=== PATIENT | female | born 1985 | race Caucasian/White ===

== ENCOUNTER 2018-01-10 10:25 | Inpatient (IN) | payer OTHER ==
[2018-01-10] MEDS: NORMOSOL-R PH 7.4 1,000 ML IV SCH ×2 (10:30→15:46)
[2018-01-10] MEDS ORDERED: BRETHINE IVP PRN (11:13)
[2018-01-10] MEDS ORDERED: ZOFRAN IV PRN ×2 (11:13→19:35)
[2018-01-10] MEDS ORDERED: SUBLIMAZE IV PRN (11:13)
[2018-01-10] MEDS ORDERED: MINERAL OIL PO PRN (11:13)
[2018-01-10] MEDS ORDERED: ePHEDrine SULFATE IV PRN ×2 (11:13→13:34)
[2018-01-10] MEDS ORDERED: BRETHINE SUB-Q PRN (11:13)
--- NOTE | 2018-01-10 11:13 | History and Physical Report ---
History of Present Illness Date of examination: 01/10/18 Chief complaint: Painful contractions Absent tones History of present illness: 32-year-old at 30+3 weeks presents with decreased movement and painful contractions, she is a [facility] patient. Patient with care at [facility] presents with decreased movement and painful contractions this AM. No heart tone detected on sonogram. No vaginal bleeding course unremarkable per patient, sonogram obtained in October unremarkable, aneuploidy screening negative, glucose testing negative. He denies any medical problems, no drug use. On exam, she is 1 cm dilated, no vaginal bleeding Past History Past Medical History: no pertinent history Past Surgical History: no surgical history PRIMARY HEALTH CARE NURSE History: denies: chlamydia, gonorrhea, hepatitis B, hepatitis C, herpes, HIV , syphilis, trichomonas Social history: , full code. denies: smoking, alcohol abuse, prescription drug abuse, IV drug use - Obstetrical History Expected Date of Delivery: 03/18/18 Actual Gestation: 30 Week(s) 3 Day(s) : 6 Para: 3 Hx # Term Pregnancies: 2 Number of Pregnancies: 1 Medications and Allergies Allergies Allergy/AdvReac Type Severity Reaction Status Date / Time No Known Allergies Allergy Unverified 01/10/18 10:27 Review of Systems Constitutional: no fever, no chills, no sweats, no anorexia, no weakness, no malaise, no lethargy, no chronic headaches Eyes: no blurred vision, no diplopia, no discharge, no photophobia, no blind spots Cardiovascular: no chest pain, no orthopnea, no syncope, no lightheadedness, no shortness of breath, no dyspnea on exertion, no high blood pressure, no decreased exercise tolerance Respiratory: no cough, no shortness of breath, no dyspnea on exertion, no congestion, no sleep apnea Gastrointestinal: abdominal pain, no nausea, no vomiting, no diarrhea, no coffee ground emesis, no heartburn Genitourinary: contractions, no vaginal bleeding, no vaginal discharge, no leakage of fluid - Vital Signs Vital signs: Vital Signs Pulse Pulse Ox 74 100 01/10/18 10:34 01/10/18 10:34 Temp Pulse Resp BP Pulse Ox 85 134/96 100 01/10/18 11:06 01/10/18 11:06 01/10/18 10:34 - Physical Exam Cardiovascular: Regular rate, Normal S1, Normal S2 Lungs: Positive: Clear to auscultation, Normal air movement Abdomen: Positive: normal appearance, soft. Negative: distention, tenderness, guarding, rigidity Genitourinary (Female): Positive: normal external genitalia Vulva: both: normal Uterus: Positive: enlarged (EFW ~ 2900). Negative: tender Adnexa: both: normal Extremities: Positive: normal - Obstetrical FHR: other (No FhT) Cervical Dilatation: 1 Results Result Diagrams: 01/10/18 10:45 All other labs normal. Assessment and Plan A: 32-year-old at 30 weeks with IUFD -stable -No obvious sign of abruption -Fundal placenta and cephalic presentation P: -Admit -Routine labs -TORCHES and Anti-phospholipid ab -Expectant mgt -Anticipate - Patient Problems (1) 30 weeks gestation of Current Visit: Yes Status: Acute (2) IUFD (intrauterine ) Current Visit: Yes Status: Acute
[2018-01-10] MEDS ORDERED: SUBLIMAZE ONE ×2 (11:14→18:44)
[2018-01-10 11:19] LABS: Basophils % (Auto) 0.2 % (0.0-1.8); Eosinophils % (Auto) 0.3 % (0.0-4.3); Hematocrit 43.7 % (30.3-42.9); Hemoglobin 14.9 gm/dl (10.1-14.3); Lymphocytes # (Auto) 3.5 K/mm3 (1.2-5.4); Lymphocytes % (Auto) 20.2 % (13.4-35.0); Mean Corpuscular HGB Conc 34 % (30-34); Mean Corpuscular Hemoglobin 31 pg (28-32); Mean Corpuscular Volume 92 fl (79-97); Monocytes % (Auto) 5.8 % (0.0-7.3); Red Blood Count 4.76 M/mm3 (3.65-5.03); Red Cell Distribution Width 12.9 % (13.2-15.2)
[2018-01-10 11:49] LABS: Platelet Count 147 K/mm3 (140-440)
[2018-01-10] MEDS ORDERED: PITOCin/NS 20 UNIT/1000ML DRIP 20 UNITS/1,000 ML BAG IV SCH ×2 (12:00→20:00)
[2018-01-10] MEDS ORDERED: XYLOCAINE 2% INFILTRATI ONE (12:00)
[2018-01-10] MEDS ORDERED: PITOCin/NS 30 UNIT/500ML 30 UNITS/500 ML BAG IV SCH (12:00)
--- NOTE | 2018-01-10 12:15 | Ultrasound Report ---
LIMITED OB ULTRASOUND: Suspect demise. Gestation: Position: Single cephalic Amniotic Fluid: JOSE = cm Placenta: Anterior/right lateral Placental Grade: 0/1 Heart Rate: 0 BPM Inhomogeneous placenta with no demonstrable blood flow.
[2018-01-10 12:20] LABS: Amphetamine Screen,Urine PRESUMPTIVE NEGATIVE; Benzodiazepines Screen,Urine PRESUMPTIVE NEGATIVE; Cannabinoid Screen,Urine PRESUMPTIVE NEGATIVE; Cocaine Screen,Urine PRESUMPTIVE NEGATIVE; Methadone Screen,Urine PRESUMPTIVE NEGATIVE; Opiate Screen,Urine PRESUMPTIVE NEGATIVE
[2018-01-10 13:16] LABS: Hematocrit 37.5 % (30.3-42.9); Hemoglobin 12.5 gm/dl (10.1-14.3); Mean Corpuscular HGB Conc 33 % (30-34); Mean Corpuscular Hemoglobin 31 pg (28-32); Mean Corpuscular Volume 92 fl (79-97); Platelet Count 116 K/mm3 (140-440); Red Blood Count 4.09 M/mm3 (3.65-5.03); Red Cell Distribution Width 12.9 % (13.2-15.2)
[2018-01-10] MEDS ORDERED: NARCAN 2 MG/2 ML IV PRN (13:34)
[2018-01-10 13:37] LABS: INR 1.02 (0.87-1.13)
[2018-01-10] MEDS ORDERED: fentaNYL-BUPIV 2 MCG/ML-0.125% 200 MCG/100 ML BAG EPIDURAL SCH (14:00)
[2018-01-10] MEDS ORDERED: XYLOCAINE MPF 2% ONE (15:16)
[2018-01-10] MEDS ORDERED: TYLENOL PO PRN ×2 (15:49→19:35)
--- NOTE | 2018-01-10 16:04 | Progress Note ---
Assessment and Plan A: 32-year-old at 30+3 weeks with IUFD -stable -Fundal placenta and cephalic presentation issues: Fibrinogen ~ 187 Low plt at 116 P: -Repeat DIC panel -Consider cryo and FFP if still abnormal -Discussed options for delivery, low dose pit for now -Anticipate normal vaginal delivery - Patient Problems (1) 30 weeks gestation of Current Visit: Yes Status: Acute (2) IUFD (intrauterine ) Current Visit: Yes Status: Acute Subjective - Subjective Date of service: 01/10/18 Interval history: Patient seen and examined, she is status post epidural and her pain has reduced. Her cervix is 2-3 cm with old dark blood now noted from the cervix. Vitals are stable, abdomen is soft with frequent regular contractions. Lab results show normal PTT INR but low fibrinogen at ~ 187 Patient has no external signs of prolonged bleeding time from her external puncture sites from blood collection Patient reports: new complaints, vaginal bleeding (old dark blood), contractions , no movement normal Objective - Vital Signs Vital Signs: Vital Signs - 12hr 01/10/18 01/10/18 01/10/18 10:34 10:49 11:06 Temperature Pulse Rate 74 76 85 Respiratory Rate Blood Pressure 136/79 134/96 O2 Sat by Pulse 100 Oximetry 01/10/18 01/10/18 01/10/18 12:04 13:02 13:03 Temperature 98.2 F Pulse Rate 95 H 85 Respiratory 20 Rate Blood Pressure 118/60 116/60 O2 Sat by Pulse 100 Oximetry 01/10/18 01/10/18 01/10/18 13:07 13:12 13:17 Temperature Pulse Rate 85 87 77 Respiratory Rate Blood Pressure O2 Sat by Pulse 100 100 100 Oximetry 01/10/18 01/10/18 01/10/18 13:22 13:27 13:29 Temperature Pulse Rate 88 85 79 Respiratory Rate Blood Pressure O2 Sat by Pulse 100 100 92 Oximetry 01/10/18 01/10/18 01/10/18 13:32 13:37 13:41 Temperature Pulse Rate 102 H 80 76 Respiratory Rate Blood Pressure 113/70 O2 Sat by Pulse 100 100 Oximetry 01/10/18 01/10/18 01/10/18 13:42 13:47 13:52 Temperature Pulse Rate 79 73 77 Respiratory Rate Blood Pressure O2 Sat by Pulse 100 100 100 Oximetry 01/10/18 01/10/18 01/10/18 13:57 14:00 14:02 Temperature Pulse Rate 79 89 Respiratory 20 Rate Blood Pressure O2 Sat by Pulse 100 100 Oximetry 01/10/18 01/10/18 01/10/18 14:07 14:10 14:12 Temperature Pulse Rate 74 74 76 Respiratory Rate Blood Pressure 114/69 O2 Sat by Pulse 100 100 Oximetry 01/10/18 01/10/18 01/10/18 14:17 14:22 14:27 Temperature Pulse Rate 75 83 80 Respiratory Rate Blood Pressure O2 Sat by Pulse 100 100 100 Oximetry 01/10/18 01/10/18 01/10/18 14:32 14:37 14:41 Temperature Pulse Rate 82 71 71 Respiratory Rate Blood Pressure 131/72 O2 Sat by Pulse 100 100 Oximetry 01/10/18 01/10/18 01/10/18 14:42 14:47 14:52 Temperature Pulse Rate 71 69 86 Respiratory Rate Blood Pressure O2 Sat by Pulse 100 100 100 Oximetry 01/10/18 01/10/18 01/10/18 14:57 15:02 15:07 Temperature Pulse Rate 76 80 86 Respiratory Rate Blood Pressure O2 Sat by Pulse 100 100 100 Oximetry 01/10/18 01/10/18 01/10/18 15:12 15:17 15:22 Temperature Pulse Rate 83 85 91 H Respiratory Rate Blood Pressure O2 Sat by Pulse 100 99 99 Oximetry 01/10/18 01/10/18 01/10/18 15:27 15:32 15:35 Temperature Pulse Rate 86 76 76 Respiratory Rate Blood Pressure 129/66 O2 Sat by Pulse 100 100 Oximetry 01/10/18 01/10/18 01/10/18 15:37 15:42 15:47 Temperature Pulse Rate 79 73 78 Respiratory Rate Blood Pressure O2 Sat by Pulse 99 100 100 Oximetry 01/10/18 01/10/18 15:52 15:57 Temperature Pulse Rate 76 83 Respiratory Rate Blood Pressure O2 Sat by Pulse 100 99 Oximetry - Exam Uterus: Absent: tenderness Cervical Dilatation: 2.5 - Labs Labs: Abnormal Labs 01/10/18 01/10/18 01/10/18 10:45 12:11 12:11 WBC 17.3 H 16.2 H Hgb 14.9 H Hct 43.7 H RDW 12.9 L 12.9 L Plt Count 116 L [place] # 1.0 H Seg Neutrophils % 73.5 H Seg Neutrophils # 12.7 H Fibrinogen 187 L Laboratory Results - last 24 hr 01/10/18 01/10/18 01/10/18 10:45 10:45 11:54 WBC 17.3 H RBC 4.76 Hgb 14.9 H Hct 43.7 H MCV 92 MCH 31 MCHC 34 RDW 12.9 L Plt Count 147 Lymph % (Auto) 20.2 [place] % (Auto) 5.8 Eos % (Auto) 0.3 Baso % (Auto) 0.2 Lymph # 3.5 [place] # 1.0 H Eos # 0.0 Baso # 0.0 Seg Neutrophils % 73.5 H Seg Neutrophils # 12.7 H PT INR APTT Fibrinogen Urine Opiates Screen Presumptive negative Urine Methadone Screen Presumptive negative Ur Barbiturates Screen Presumptive negative Ur Phencyclidine Scrn Presumptive negative Ur Amphetamines Screen Presumptive negative U Benzodiazepines Scrn Presumptive negative Urine Cocaine Screen Presumptive negative U Marijuana (THC) Screen Presumptive negative Drugs of Abuse Note Disclamer Hep Bs Antigen Hepatitis C Antibody HIV 1&2 Antibody Rapid HIV P24 Antigen Blood Type A POSITIVE Antibody Screen Negative 01/10/18 01/10/18 01/10/18 12:11 12:11 12:11 WBC 16.2 H RBC 4.09 Hgb 12.5 Hct 37.5 D MCV 92 MCH 31 MCHC 33 RDW 12.9 L Plt Count 116 L Lymph % (Auto) [place] % (Auto) Eos % (Auto) Baso % (Auto) Lymph # [place] # Eos # Baso # Seg Neutrophils % Seg Neutrophils # PT 13.9 INR 1.02 APTT 32.0 Fibrinogen 187 L Urine Opiates Screen Urine Methadone Screen Ur Barbiturates Screen Ur Phencyclidine Scrn Ur Amphetamines Screen U Benzodiazepines Scrn Urine Cocaine Screen U Marijuana (THC) Screen Drugs of Abuse Note Hep Bs Antigen Hepatitis C Antibody Non-reactive HIV 1&2 Antibody Rapid HIV P24 Antigen Blood Type Antibody Screen 01/10/18 01/10/18 12:11 12:11 WBC RBC Hgb Hct MCV MCH MCHC RDW Plt Count Lymph % (Auto) [place] % (Auto) Eos % (Auto) Baso % (Auto) Lymph # [place] # Eos # Baso # Seg Neutrophils % Seg Neutrophils # PT INR APTT Fibrinogen Urine Opiates Screen Urine Methadone Screen Ur Barbiturates Screen Ur Phencyclidine Scrn Ur Amphetamines Screen U Benzodiazepines Scrn Urine Cocaine Screen U Marijuana (THC) Screen Drugs of Abuse Note Hep Bs Antigen Non-reactive Hepatitis C Antibody HIV 1&2 Antibody Rapid Non react HIV P24 Antigen Non react Blood Type Antibody Screen
[2018-01-10 16:30] LABS: Hemoglobin 11.5 gm/dl (10.1-14.3); Mean Corpuscular HGB Conc 33 % (30-34); Mean Corpuscular Hemoglobin 31 pg (28-32); Mean Corpuscular Volume 93 fl (79-97); Platelet Count 102 K/mm3 (140-440); Red Blood Count 3.77 M/mm3 (3.65-5.03); Red Cell Distribution Width 12.9 % (13.2-15.2)
--- NOTE | 2018-01-10 17:12 | Event Note ---
Date: 01/10/18 Just received result of DIC testing, fibrinogen level has improved. Her cervix has changed, she is now 3-4 cm. Platelets however are lower at ~ 100's and she has a low-grade temp. Plan is to start low-dose Pitocin and increase per protocol.
--- NOTE | 2018-01-10 18:24 | Progress Note ---
Assessment and Plan A: 32-year-old at 30+3 weeks with IUFD -stable -Fundal placenta and cephalic presentation P: -AROMed with clear fluid -Continue present care -Anticipate normal vaginal delivery - Patient Problems (1) 30 weeks gestation of Current Visit: Yes Status: Acute (2) IUFD (intrauterine ) Current Visit: Yes Status: Acute Subjective - Subjective Date of service: 01/10/18 Interval history: Patient now ~ 5 cm. Mild bloody show noted. Patient AROMed with clear fluid Patient reports: new complaints, vaginal bleeding (old dark blood), contractions , no movement normal Objective - Vital Signs Vital Signs: Vital Signs - 12hr 01/10/18 01/10/18 01/10/18 10:34 10:49 11:06 Temperature Pulse Rate 74 76 85 Respiratory Rate Blood Pressure 136/79 134/96 O2 Sat by Pulse 100 Oximetry 01/10/18 01/10/18 01/10/18 12:04 13:02 13:03 Temperature 98.2 F Pulse Rate 95 H 85 Respiratory 20 Rate Blood Pressure 118/60 116/60 O2 Sat by Pulse 100 Oximetry 01/10/18 01/10/18 01/10/18 13:07 13:12 13:17 Temperature Pulse Rate 85 87 77 Respiratory Rate Blood Pressure O2 Sat by Pulse 100 100 100 Oximetry 01/10/18 01/10/18 01/10/18 13:22 13:27 13:29 Temperature Pulse Rate 88 85 79 Respiratory Rate Blood Pressure O2 Sat by Pulse 100 100 92 Oximetry 01/10/18 01/10/18 01/10/18 13:32 13:37 13:41 Temperature Pulse Rate 102 H 80 76 Respiratory Rate Blood Pressure 113/70 O2 Sat by Pulse 100 100 Oximetry 01/10/18 01/10/18 01/10/18 13:42 13:47 13:52 Temperature Pulse Rate 79 73 77 Respiratory Rate Blood Pressure O2 Sat by Pulse 100 100 100 Oximetry 01/10/18 01/10/18 01/10/18 13:57 14:00 14:02 Temperature Pulse Rate 79 89 Respiratory 20 Rate Blood Pressure O2 Sat by Pulse 100 100 Oximetry 01/10/18 01/10/18 01/10/18 14:07 14:10 14:12 Temperature Pulse Rate 74 74 76 Respiratory Rate Blood Pressure 114/69 O2 Sat by Pulse 100 100 Oximetry 01/10/18 01/10/18 01/10/18 14:17 14:22 14:27 Temperature Pulse Rate 75 83 80 Respiratory Rate Blood Pressure O2 Sat by Pulse 100 100 100 Oximetry 01/10/18 01/10/18 01/10/18 14:32 14:37 14:41 Temperature Pulse Rate 82 71 71 Respiratory Rate Blood Pressure 131/72 O2 Sat by Pulse 100 100 Oximetry 01/10/18 01/10/18 01/10/18 14:42 14:47 14:52 Temperature Pulse Rate 71 69 86 Respiratory Rate Blood Pressure O2 Sat by Pulse 100 100 100 Oximetry 01/10/18 01/10/18 01/10/18 14:57 15:02 15:07 Temperature Pulse Rate 76 80 86 Respiratory Rate Blood Pressure O2 Sat by Pulse 100 100 100 Oximetry 01/10/18 01/10/18 01/10/18 15:12 15:17 15:22 Temperature Pulse Rate 83 85 91 H Respiratory Rate Blood Pressure O2 Sat by Pulse 100 99 99 Oximetry 01/10/18 01/10/18 01/10/18 15:27 15:32 15:35 Temperature Pulse Rate 86 76 76 Respiratory Rate Blood Pressure 129/66 O2 Sat by Pulse 100 100 Oximetry 01/10/18 01/10/18 01/10/18 15:37 15:42 15:47 Temperature Pulse Rate 79 73 78 Respiratory Rate Blood Pressure O2 Sat by Pulse 99 100 100 Oximetry 01/10/18 01/10/18 01/10/18 15:52 15:57 16:00 Temperature Pulse Rate 76 83 Respiratory 20 Rate Blood Pressure O2 Sat by Pulse 100 99 Oximetry 01/10/18 01/10/18 01/10/18 16:02 16:07 16:11 Temperature Pulse Rate 94 H 82 88 Respiratory Rate Blood Pressure 110/55 O2 Sat by Pulse 100 100 Oximetry 01/10/18 01/10/18 01/10/18 16:12 16:14 16:17 Temperature Pulse Rate 82 100 H 84 Respiratory Rate Blood Pressure O2 Sat by Pulse 100 85 98 Oximetry 01/10/18 01/10/18 01/10/18 16:22 16:27 16:32 Temperature Pulse Rate 77 80 94 H Respiratory Rate Blood Pressure O2 Sat by Pulse 100 100 100 Oximetry 01/10/18 01/10/18 01/10/18 16:35 16:37 16:40 Temperature Pulse Rate 76 74 Respiratory 18 Rate Blood Pressure 110/56 O2 Sat by Pulse 99 Oximetry 01/10/18 01/10/18 01/10/18 16:42 16:47 16:48 Temperature 99.7 F H Pulse Rate 74 86 Respiratory Rate Blood Pressure O2 Sat by Pulse 100 100 Oximetry 01/10/18 01/10/18 01/10/18 16:52 16:57 17:02 Temperature Pulse Rate 78 76 84 Respiratory Rate Blood Pressure O2 Sat by Pulse 99 99 100 Oximetry 01/10/18 01/10/18 01/10/18 17:07 17:10 17:12 Temperature Pulse Rate 80 74 72 Respiratory Rate Blood Pressure 109/58 O2 Sat by Pulse 99 99 Oximetry 01/10/18 01/10/18 01/10/18 17:17 17:22 17:27 Temperature Pulse Rate 74 70 80 Respiratory Rate Blood Pressure O2 Sat by Pulse 99 98 99 Oximetry 01/10/18 01/10/18 01/10/18 17:32 17:37 17:41 Temperature Pulse Rate 74 79 72 Respiratory Rate Blood Pressure O2 Sat by Pulse 98 100 90 Oximetry 01/10/18 01/10/18 01/10/18 17:42 17:47 17:48 Temperature Pulse Rate 86 90 83 Respiratory Rate Blood Pressure O2 Sat by Pulse 99 100 86 Oximetry 01/10/18 01/10/18 01/10/18 17:52 17:57 18:02 Temperature Pulse Rate 75 65 68 Respiratory Rate Blood Pressure O2 Sat by Pulse 100 100 99 Oximetry 01/10/18 01/10/18 01/10/18 18:07 18:12 18:17 Temperature Pulse Rate 73 71 77 Respiratory Rate Blood Pressure O2 Sat by Pulse 98 99 97 Oximetry 01/10/18 01/10/18 18:20 18:22 Temperature Pulse Rate 70 69 Respiratory Rate Blood Pressure 142/70 O2 Sat by Pulse 99 Oximetry - Exam Cervical Dilatation: 5 - Labs Labs: Abnormal Labs 01/10/18 01/10/18 01/10/18 10:45 12:11 12:11 WBC 17.3 H 16.2 H Hgb 14.9 H Hct 43.7 H RDW 12.9 L 12.9 L Plt Count 116 L [place] # 1.0 H Seg Neutrophils % 73.5 H Seg Neutrophils # 12.7 H Fibrinogen 187 L 01/10/18 16:18 WBC 15.3 H Hgb Hct RDW 12.9 L Plt Count 102 L [place] # Seg Neutrophils % Seg Neutrophils # Fibrinogen Laboratory Results - last 24 hr 01/10/18 01/10/18 01/10/18 10:45 10:45 11:54 WBC 17.3 H RBC 4.76 Hgb 14.9 H Hct 43.7 H MCV 92 MCH 31 MCHC 34 RDW 12.9 L Plt Count 147 Lymph % (Auto) 20.2 [place] % (Auto) 5.8 Eos % (Auto) 0.3 Baso % (Auto) 0.2 Lymph # 3.5 [place] # 1.0 H Eos # 0.0 Baso # 0.0 Seg Neutrophils % 73.5 H Seg Neutrophils # 12.7 H PT INR APTT Fibrinogen Urine Opiates Screen Presumptive negative Urine Methadone Screen Presumptive negative Ur Barbiturates Screen Presumptive negative Ur Phencyclidine Scrn Presumptive negative Ur Amphetamines Screen Presumptive negative U Benzodiazepines Scrn Presumptive negative Urine Cocaine Screen Presumptive negative U Marijuana (THC) Screen Presumptive negative Drugs of Abuse Note Disclamer Hep Bs Antigen Hepatitis C Antibody HIV 1&2 Antibody Rapid HIV P24 Antigen Blood Type A POSITIVE Antibody Screen Negative 01/10/18 01/10/18 01/10/18 12:11 12:11 12:11 WBC 16.2 H RBC 4.09 Hgb 12.5 Hct 37.5 D MCV 92 MCH 31 MCHC 33 RDW 12.9 L Plt Count 116 L Lymph % (Auto) [place] % (Auto) Eos % (Auto) Baso % (Auto) Lymph # [place] # Eos # Baso # Seg Neutrophils % Seg Neutrophils # PT 13.9 INR 1.02 APTT 32.0 Fibrinogen 187 L Urine Opiates Screen Urine Methadone Screen Ur Barbiturates Screen Ur Phencyclidine Scrn Ur Amphetamines Screen U Benzodiazepines Scrn Urine Cocaine Screen U Marijuana (THC) Screen Drugs of Abuse Note Hep Bs Antigen Hepatitis C Antibody Non-reactive HIV 1&2 Antibody Rapid HIV P24 Antigen Blood Type Antibody Screen 01/10/18 01/10/18 01/10/18 12:11 12:11 16:14 WBC RBC Hgb Hct MCV MCH MCHC RDW Plt Count Lymph % (Auto) [place] % (Auto) Eos % (Auto) Baso % (Auto) Lymph # [place] # Eos # Baso # Seg Neutrophils % Seg Neutrophils # PT 13.7 INR 1.00 APTT 30.0 Fibrinogen 229 Urine Opiates Screen Urine Methadone Screen Ur Barbiturates Screen Ur Phencyclidine Scrn Ur Amphetamines Screen U Benzodiazepines Scrn Urine Cocaine Screen U Marijuana (THC) Screen Drugs of Abuse Note Hep Bs Antigen Non-reactive Hepatitis C Antibody HIV 1&2 Antibody Rapid Non react HIV P24 Antigen Non react Blood Type Antibody Screen 01/10/18 16:18 WBC 15.3 H RBC 3.77 Hgb 11.5 Hct 35.0 MCV 93 MCH 31 MCHC 33 RDW 12.9 L Plt Count 102 L Lymph % (Auto) [place] % (Auto) Eos % (Auto) Baso % (Auto) Lymph # [place] # Eos # Baso # Seg Neutrophils % Seg Neutrophils # PT INR APTT Fibrinogen Urine Opiates Screen Urine Methadone Screen Ur Barbiturates Screen Ur Phencyclidine Scrn Ur Amphetamines Screen U Benzodiazepines Scrn Urine Cocaine Screen U Marijuana (THC) Screen Drugs of Abuse Note Hep Bs Antigen Hepatitis C Antibody HIV 1&2 Antibody Rapid HIV P24 Antigen Blood Type Antibody Screen
[2018-01-10] MEDS ORDERED: CYTOTEC ONE (19:13)
[2018-01-10] MEDS ORDERED: METHERGINE IM ONE (19:24)
--- NOTE | 2018-01-10 19:32 | Procedure Note ---
OB Delivery Note - Delivery Date of Delivery: 01/10/18 Surgeon: RAMON QUINONEZ Estimated blood loss: 200cc - Vaginal Delivery presentation: vertex Delivery position: OA Intrapartum events: none Delivery induction: none Delivery augmentation: rupture of membranes, pitocin Delivery monitor: external uterine Route of delivery: Delivery placenta: spontaneous Delivery cord: 3 umbilical vessels Episiotomy: none Delivery laceration: none Anesthesia: epidural Delivery comments: over intact perinuem of male infant. No dysmorphic features noted. Obvious signs of placental abruption with 10x8 cm area of placenta detached along with dark colored blod clot noted. - A at 1 minute: 0 at 5 minutes: 0 (Time of delivery was 19:20, weight was 3#4 or 1487 g) Gender: Male
[2018-01-10] MEDS ORDERED: PHENERGAN PR PRN (19:35)
[2018-01-10] MEDS ORDERED: DULCOLAX PR PRN (19:35)
[2018-01-10] MEDS ORDERED: BENADRYL PO PRN (19:35)
[2018-01-10] MEDS ORDERED: TUCKS PAD TP PRN (19:35)
[2018-01-10] MEDS ORDERED: MILK OF MAGNESIA PO PRN (19:35)
[2018-01-10] MEDS ORDERED: LANSINOH TP PRN (19:35)
[2018-01-10] MEDS ORDERED: METHERGINE IM PRN (19:35)
--- NOTE | 2018-01-10 19:39 | Event Note ---
Date: 01/10/18 Obvious signs of abruption, will cancel TORCHES titer. Send placenta to lab and continue antiphospholipid screening
[2018-01-10] MEDS ORDERED: CYTOTEC PR ONE (20:00)
[2018-01-10] MEDS ORDERED: SODIUM CHLORIDE FLUSH SYRINGE 10 ML IV SCH (20:00)
[2018-01-10] MEDS ORDERED: POLYCILLIN/NS 2 GM/100 ML 2 GM/100 ML BAG IV ONE ×2 (20:23→23:48)
[2018-01-10] MEDS: NORCO 5/325 PO PRN (20:41)
[2018-01-10] MEDS ORDERED: GARAMYCIN 120 MG in NACL 0.9% 100 ML IV ONE (21:00)
[2018-01-10 21:57] LABS: BUN/Creatinine Ratio 11; Blood Urea Nitrogen 11 mg/dL (7-17); Calcium 7.2 mg/dL (8.4-10.2); Hemolysis Index 3
[2018-01-10] MEDS ORDERED: CLEOCIN 600 MG/50 mL 600 MG/50 ML BAG IV SCH ×2 (22:00→23:00)
[2018-01-10] MEDS: COLACE PO SCH (22:00)
[2018-01-10] MEDS: FEOSOL PO SCH (22:00)
[2018-01-10] MEDS: SENOKOT S PO SCH (22:00)
[2018-01-10] MEDS ORDERED: AMBIEN PO ONE (23:48)
[2018-01-11] MEDS: PERCOCET 5/325 PO PRN ×3 (00:07→21:18)
[2018-01-11] MEDS: MOTRIN PO SCH ×5 (00:07→18:15)
[2018-01-11] MEDS ORDERED: AMPICILLIN/NS 1 GM/50 ML 1 GM/50 ML BAG IV SCH (02:00)
[2018-01-11] MEDS: AMPICILLIN/NS 1 GM/50 ML 1 GM/50 ML BAG IV SCH ×3 (05:01→18:14)
[2018-01-11] MEDS: PHENERGAN PO PRN (05:08)
[2018-01-11] MEDS: GARAMYCIN/NS 80 MG/100 ML 100 ML IV SCH ×3 (05:57→21:19)
[2018-01-11] MEDS ORDERED: GARAMYCIN 80 MG in NACL 0.9% 100 ML IV SCH (06:00)
[2018-01-11] MEDS ORDERED: D5LR 1,000 ML IV SCH (06:00)
[2018-01-11] MEDS: CLEOCIN 600 MG/50 mL 600 MG/50 ML BAG IV SCH ×2 (08:00→16:30)
[2018-01-11] MEDS: NORCO 5/325 PO PRN (08:00)
[2018-01-11 08:13] LABS: Hematocrit 30.5 % (30.3-42.9); Hemoglobin 10.5 gm/dl (10.1-14.3)
[2018-01-11] MEDS ORDERED: PRENATAL VITAMIN PO SCH (10:00)
[2018-01-11] MEDS: SENOKOT S PO SCH ×2 (10:06→21:17)
[2018-01-11] MEDS: COLACE PO SCH ×2 (10:06→21:18)
--- NOTE | 2018-01-11 19:00 | Progress Note ---
Assessment and Plan PPD# 1 -IUFD at 30+3 wks -[place] P: -Await culture results -Continue present care -Likely discharge in 24 hours - Patient Problems (1) 30 weeks gestation of Current Visit: Yes Status: Acute (2) IUFD (intrauterine ) Current Visit: Yes Status: Acute Subjective - Subjective Date of service: 01/11/18 Principal diagnosis: PPD#1 s/p of IUFD at ~ 31 wks Interval history: She was seen and examined, stable doing well. No fever or chills and has been afebrile times almost 24 hours now. Still receiving antibiotics, await blood culture. No other issues Patient reports: appetite normal, voiding normally, pain well controlled, ambulating normally, no dizzy ambulation, no nauseated [place]: Objective - Vital Signs Latest vital signs: Vital Signs Temp Pulse Resp BP BP Pulse Ox 01/11/18 18:25 98.6 F 68 18 135/74 99 01/11/18 07:38 97.7 F 63 16 123/80 97 01/11/18 05:24 97.2 F L 63 18 135/72 98 01/10/18 22:53 97.6 F 75 20 128/76 98 01/10/18 21:58 87 110/84 01/10/18 21:42 78 130/74 01/10/18 21:28 75 149/75 01/10/18 21:12 84 122/60 01/10/18 20:57 75 147/69 01/10/18 20:43 75 134/68 01/10/18 20:12 65 153/74 01/10/18 19:58 98 H 136/57 01/10/18 19:56 80 150/74 01/10/18 19:51 100.9 F H 80 16 150/74 01/10/18 19:34 72 L 01/10/18 19:22 67 82 L 01/10/18 19:20 72 91 01/10/18 19:17 95 H 99 01/10/18 19:12 91 H 99 01/10/18 19:07 97 H 99 01/10/18 19:02 87 98 Intake and Output 01/11/18 01/11/18 01/11/18 07:59 15:59 23:59 Intake Total 150 100 Output Total 1000 Balance -850 100 Intake: IV 150 100 AMPICILLIN/NS 1 GM/50 ML 50 50 1 gm In 50 ml @ 100 mls/ hr IV Q6H [facility] Rx#: [id number] CLEOCIN 600 MG/50 mL 600 50 mg In 50 ml @ 100 mls/hr IV Q8H [facility] Rx#:[id number] Garamycin/Ns 80 mg/100 ml 100 100 ml @ 100 mls/hr IV Q8HR [facility] Rx#:[id number] Output: Urine 1000 Void 1000 Other: Total, Output Amount 500 - Exam Abdomen: Present: normal appearance, soft. Absent: distention, tenderness, guarding, rigidity Uterus: Present: firm, fundal height below umbilicus. Absent: tenderness Extremities: Present: normal - Labs Labs: Abnormal lab results 01/10/18 Range/Units 21:19 Carbon Dioxide 21 L (22-30) mmol/L Calcium 7.2 L (8.4-10.2) mg/dL
--- NOTE | 2018-01-11 19:05 | Discharge Summary ---
Providers - Providers Date of Admission: 01/10/18 11:16 Date of discharge: 01/12/18 Attending physician: RAMÍREZ BERMUDEZ MD Primary care physician: TEZ ELAINE Hospitalization Reason for admission: induction of labor, IUFD Delivery: Episiotomy: none Laceration: none Other procedures: none complications: pelvic infection Discharge diagnosis: delivery (intrauterine demise at 30 weeks) Pertinent studies: Blood culture negative Hospital course: Hospital course complicated by chorioamnionitis, started on triple antibiotics and remained afebrile 24 hours. Condition at discharge: Good Disposition: DC-01 TO HOME OR SELFCARE - Discharge Diagnoses (1) 30 weeks gestation of Status: Acute (2) IUFD (intrauterine ) Status: Acute Plan - Discharge Medications Prescriptions: Ibuprofen [Motrin 600 MG tab] 600 mg PO Q8H PRN #30 tablet PRN Reason: Pain Multivitamin with Iron [Multivitamins with Iron] 1 each PO DAILY #30 tablet - Provider Discharge Summary Activity: no sex for 6 weeks, no heavy lifting 4 weeks, no strenuous exercise Diet: routine Additional instructions: [] Smoking cessation referral if applicable(refer to patient education folder for contact #) [] Refer to [facility] Booklet Call your doctor immediately for: * Fever > 100.5 * Heavy vaginal bleeding ( >1 pad per hour) * Severe persistent headache * Shortness of breath * Reddened, hot, painful area to leg or breast * Drainage or odor from incision. * Keep incision clean and dry at all times and follow doctor's instructions regarding bathing/showering - Follow up plan Follow up: TEZ ELAINE MD [Primary Care Provider] - 7 Days RAMÍREZ BERMUDEZ MD [Staff Physician] - 7 Days
[2018-01-11] MEDS ORDERED: AMBIEN PO PRN (21:10)
[2018-01-11] MEDS: FEOSOL PO SCH (21:18)
[2018-01-12] MEDS: PHENERGAN PO PRN (01:44)
[2018-01-12] MEDS: PERCOCET 5/325 PO PRN (08:16)
[2018-01-12 09:14] VITALS: BP 130/82
[2018-01-13 07:03] LABS: Cardiolipin Ab IgA <11 APL (<=11); Cardiolipin Ab IgG <14 GPL (<=14); Cardiolipin Ab IgM <12 MPL (<=12)
== END 2018-01-12 10:55 | disposition home or self-care (01) | DRG 774 ==
LOC: TRG 10:25 → LD 11:16 → OB 22:26
PROVIDERS: ADMIT Obstetrics & Gynecology; ATTEND Obstetrics & Gynecology
PROC: 10E0XZZ Delivery of Products of Conception, External Approach (ICD-10-PCS; principal; 2018-01-08)
PROC: 3E0R3BZ Introduction of Anesthetic Agent into Spinal Canal, Percutaneous Approach (ICD-10-PCS; 2018-01-08)
PROC: 00HU33Z Insertion of Infusion Device into Spinal Canal, Percutaneous Approach (ICD-10-PCS; 2018-01-08)
DX: O36.4XX0 Maternal care for intrauterine death, not applicable or unspecified (principal); O86.89 Other specified puerperal infections; O41.1230 Chorioamnionitis, third trimester, not applicable or unspecified; O60.14X0 Preterm labor third trimester with preterm delivery third trimester, not applicable or unspecified; Z37.1 Single stillbirth; Z3A.30 30 weeks gestation of pregnancy
CPT/HCPCS: 36415; 76815; 80048; 80170; 80307; 85014; 85018; 85025; 85027; 85384; 85610; 85613; 85730; 86147; 86592; 86706; 86777; 86778; 86803; 86850; 86900; 86901; 87040; 87086; 87497; 87806; 88307; J0290; J1580; J2210; J2590; J3010; J7121; Q0169